=== PATIENT | male | born 1975 | race Caucasian/White ===

== ENCOUNTER 2018-04-02 17:40 | Emergency (ER) | payer BC ==
--- NOTE | 2018-04-02 18:21 | EDM.PDOC ---
ED HPI GENERAL MEDICAL PROBLEM - General Chief Complaint: Lower Extremity Injury/Pain Stated Complaint: ROLLED HIS LF ANKLE Time Seen by Provider: 04/02/18 18:05 - History of Present Illness INITIAL COMMENTS - FREE TEXT/NARRATIVE: HISTORY AND PHYSICAL: History of present illness: Patient 42-year-old white male presents with concerned acute left ankle injury that occurred when he rolled his ankle prior to arrival he had pain and swelling since he denies other trauma or concern Review of systems: As per history of present illness and below otherwise all systems reviewed and negative. Past medical history: As per history of present illness and as reviewed below otherwise noncontributory. Surgical history: As per history of present illness and as reviewed below otherwise noncontributory. Social history: No reported history of drug or alcohol abuse. Family history: As per history of present illness and as reviewed below otherwise noncontributory. Physical exam: HEENT: Atraumatic, normocephalic, pupils reactive, negative for conjunctival pallor or scleral icterus, mucous membranes moist, throat clear, neck supple, nontender, trachea midline. Lungs: Clear to auscultation, breath sounds equal bilaterally, chest nontender. Heart: S1S2, regular, negative for clicks, rubs, or JVD. Abdomen: Soft, nondistended, nontender. Negative for masses or hepatosplenomegaly. Negative for costovertebral tenderness. Pelvis: Stable nontender. Genitourinary: Deferred. Rectal: Deferred. Extremities: Left ankle is pain and swelling over the lateral malleolus Achilles tendon is intact with no crepitation CMS and neurovascular exams unremarkable Neuro: Awake, alert, oriented. Cranial nerves II through XII unremarkable. Cerebellum unremarkable. Motor and sensory unremarkable throughout. Exam nonfocal. Diagnostics: X-ray left ankle Therapeutics: To be determined Impression: #1 acute left ankle injury Definitive disposition and diagnosis as appropriate pending reevaluation and review of above. - Related Data Allergies Allergy/AdvReac Type Severity Reaction Status Date / Time No Known Allergies Allergy Verified 04/02/18 18:22 Home Meds: Home Meds Olmesartan [Benicar] 1 tab PO DAILY 04/02/18 [History] amLODIPine Besylate [Amlodipine Besylate] 0 mg PO DAILY 04/02/18 [History] atorvaSTATin [Lipitor] 1 tab PO BEDTIME 04/02/18 [History] Review of Systems - Review of Systems Review Of Systems: ROS reveals no pertinent complaints other than HPI. ED EXAM, GENERAL - Physical Exam Exam: See Below (See dictation) Course - Vital Signs Last Recorded V/S: Last Vital Signs Temp 36.4 C 04/02/18 17:40 Pulse 98 04/02/18 17:40 Resp 18 04/02/18 17:40 BP 158/92 H 04/02/18 17:40 Pulse Ox 94 L 04/02/18 17:40 - Orders/Labs/Meds Orders: Active Orders 24 hr Category Date Time Status Ankle Min 3V Lt [CR] Stat Exams 04/02/18 18:07 Taken Departure - Departure Time of Disposition: 18:40 Disposition: Home, Self-Care 01 Condition: Good Clinical Impression: Ankle injury - Discharge Information *PRESCRIPTION DRUG MONITORING PROGRAM REVIEWED*: Not Applicable *COPY OF PRESCRIPTION DRUG MONITORING REPORT IN PATIENT ANETA: Not Applicable Referrals: PCP,None [Primary Care Provider] - Forms: ED Department Discharge Additional Instructions: The following information is given to patients seen in the emergency department who are being discharged to home. This information is to outline your options for follow-up care. We provide all patients seen in our emergency department with a follow-up referral. The need for follow-up, as well as the timing and circumstances, are variable depending upon the specifics of your emergency department visit. If you don't have a primary care physician on staff, we will provide you with a referral. We always advise you to contact your personal physician following an emergency department visit to inform them of the circumstance of the visit and for follow-up with them and/or the need for any referrals to a consulting specialist. The emergency department will also refer you to a specialist when appropriate. This referral assures that you have the opportunity for followup care with a specialist. All of these measure are taken in an effort to provide you with optimal care, which includes your followup. Under all circumstances we always encourage you to contact your private physician who remains a resource for coordinating your care. When calling for followup care, please make the office aware that this follow-up is from your recent emergency room visit. If for any reason you are refused follow-up, please contact the [facility] emergency department at and asked to speak to the emergency department charge nurse. Tru wrap crutches as directed Motrin and Tylenol as directed follow-up primary medical doctor as needed as discussed and return as needed as discussed - My Orders Last 24 Hours: My Active Orders 04/02/18 18:07 Ankle Min 3V Lt [CR] Stat - Assessment/Plan Last 24 Hours: My Active Orders 04/02/18 18:07 Ankle Min 3V Lt [CR] Stat
--- NOTE | 2018-04-04 13:05 | CR ---
EXAM DATE: 04/02/18 PATIENT'S AGE: 42 Patient: JESÚS NAPOLES Facility: [place], [place] Site . Site : [id number] Study: XRay Extremity Left ankle [id number]/[id number] 6:26:41 PM Ordering Physician: Doctor Minaya Final Report: Indication: Twisted ankle earlier today. Technique: Three views of the left ankle were obtained. Comparison: None Findings: The ankle mortise is intact. The talar dome is intact. No acute fracture or subluxation is identified. A small enthesophyte is identified at the insertion site of the Achilles tendon on the calcaneus. Soft tissue swelling is identified laterally. Impression: Soft tissue swelling laterally. No acute fracture identified. Dictated by Mary Kay Blair MD @ Apr 02 2018 6:27PM (Electronic Signature) Report Signed by Proxy. MOSHE
== END 2018-04-02 18:52 | disposition home or self-care (01) ==
LOC: MW.ED 17:40
DX: S99.912A Unspecified injury of left ankle, initial encounter (principal); Z79.899 Other long term (current) drug therapy; X50.9XXA Other and unspecified overexertion or strenuous movements or postures, initial encounter
CPT/HCPCS: 73610-26-LT; 73610-LT; 99283